=== PATIENT | female | born 1995 ===

== ENCOUNTER 2017-03-11 15:45 | Emergency (ER) | payer OTHER ==
[2017-03-11 16:08] VITALS: BP 108/57; PULSE 73; RESP 18; TEMP 98.5; O2SAT 98
--- NOTE | 2017-03-11 16:36 | ED PDOC ---
Lower Extremity Pain/Injury Time Seen by Provider: 03/11/17 15:56 Chief Complaint (Nursing): Lower Extremity Problem/Injury Chief Complaint (Provider): Right foot injury History Per: Patient History/Exam Limitations: no limitations Onset/Duration Of Symptoms: Mins (30 min prior to arrival) Current Symptoms Are (Timing): Still Present Additional Complaint(s): Gill is a 21 y/o female who presents to the ED complaining of right foot pain after sustaining an injury 30 minutes prior to arrival. States she rolled her ankle while walking downstairs. Denies taking any medications for pain relief. Denies numbness and tingling. LMP was beginning of February. PMD: Yovany Colbert Past Medical History Reviewed: Historical Data, Nursing Documentation, Vital Signs Vital Signs: Last Vital Signs Temp 98.5 F 03/11/17 16:04 Pulse 73 03/11/17 16:04 Resp 18 03/11/17 16:04 BP 108/57 L 03/11/17 16:04 Pulse Ox 98 03/11/17 16:04 - Medical History PMH: No Chronic Diseases - Surgical History Surgical History: No Surg Hx - Family History Family History: States: Unknown Family Hx - Social History Current smoker - smoking cessation education provided: No Alcohol: None Drugs: Denies - Home Medications Home Medications: Ambulatory Orders Medication Instructions Recorded Ibuprofen [Motrin Tab] 800 mg PO Q6H PRN #20 tab 03/11/17 - Allergies Allergies/Adverse Reactions: Allergies Allergy/AdvReac Type Severity Reaction Status Date / Time Penicillins Allergy SWELLING Verified 03/11/17 16:03 Review of Systems ROS Statement: Except As Marked, All Systems Reviewed And Found Negative Musculoskeletal: Positive for: Foot Pain (Right) Neurological: Negative for: Numbness, Other (Tingling) Physical Exam - Reviewed Nursing Documentation Reviewed: Yes Vital Signs Reviewed: Yes - Physical Exam Appears: Positive for: Well, Non-toxic, No Acute Distress Head Exam: Positive for: ATRAUMATIC, NORMAL INSPECTION, NORMOCEPHALIC Skin: Positive for: Normal Color, Warm, Dry Eye Exam: Positive for: EOMI, Normal appearance, PERRL Neck: Positive for: Normal Pulses-Dorsalis Pedis (L): 2+ Pulses-Dorsalis Pedis (R): 2+ Extremity: Positive for: Normal ROM, Tenderness (inferior to the lateral malleolus, and proximal 5th metatarsal.). Negative for: Deformity, Other ( Ecchymosis) Neurologic/Psych: Positive for: Alert, Oriented. Negative for: Motor/Sensory Deficits - ECG O2 Sat by Pulse Oximetry: 98 (RA) Pulse Ox Interpretation: Normal - Radiology X-Ray: Interpreted by Me, Viewed By Me X-Ray Interpretation: Fracture (Non-displaced fracture of the proximal 5th metatarsal) Medical Decision Making Medical Decision Making: Time: 16:32 Impression: Right foot injury Initial Plan: --Pending X-Ray Right Foot to r/o fracture --Given Motrin 600 mg PO --Pending reevaluation Time: 17:10 -- X-Ray shows a non-displaced fracture of the proximal 5th metatarsal --Patient will be seen by Podiatry Clinical Impression: Fracture, right 5th metatarsal Time: 17:25 --Podiatry consulted patient, and will place cast --Instructions for crutches provided --Will follow up in Podiatry Clinic next Tuesday Upon provider reevaluation patient is medically stable, and requires no further treatment in the ED at this time. There is agreement to discharge plan. Return if symptoms persist or worsen. Scribe Attestation: Documented by Maureen Dixon, acting as a scribe for Karrie Webster PA-C Provider Scribe Attestation: All medical record entries made by the Scribe were at my direction and personally dictated by me. I have reviewed the chart and agree that the record accurately reflects my personal performance of the history, physical exam, medical decision making, and the department course for this patient. I have also personally directed, reviewed, and agree with the discharge instructions and disposition. Disposition - Clinical Impression Clinical Impression: Metatarsal bone fracture - Disposition Referrals: Podiatry Clinic [Outside] Disposition: Routine/Home Disposition Time: 18:08 Condition: GOOD Prescriptions: Ibuprofen [Motrin Tab] 800 mg PO Q6H PRN #20 tab PRN Reason: Pain Instructions: Foot Fracture in Adults (ED)
--- NOTE | 2017-03-11 17:19 | RAD ---
PROCEDURE: Right foot dated 03/11/2017 HISTORY: Lateral pain. COMPARISON: None. FINDINGS: BONES: Current study reveals relatively nondisplaced fracture base 5th metatarsal right foot with of what appears represent some mild surrounding soft tissue swelling JOINTS: Normal. SOFT TISSUES: Normal. OTHER FINDINGS: None. IMPRESSION: Nondisplaced fracture base 5th metatarsal right foot with what appears represent some mild surrounding soft tissue swelling. Findings discussed with emergency room LEA Webster at approximately 5:18 p.m. with written down and read back verification.
--- NOTE | 2017-03-11 21:17 | CP.PCM.CON ---
History of Present Illness - History of Present Illness History of Present Illness: 21 year old female seen in ED complaining of right foot pain. Patient states that she missed the last step while walking down the stairs and heard a pain while simultaneously experiencing severe pain to the outside of her foot. Patient states that she applied ice to the area. She cannot weight bear at this time. Patient denies any further pedal complaints. Patient denies N/V/F/C/CP/SOB Review of Systems - Review of Systems Review of Systems: ROS unremarkable outside of HPI Past Patient History - Past Social History Alcohol: None Drugs: Denies - PSYCHIATRIC Hx Substance Use: No - SURGICAL HISTORY Hx Surgeries: No - ANESTHESIA Hx Anesthesia: No Meds Home Medications: Home Medication List Medication Instructions Recorded Confirmed Type Ibuprofen [Motrin Tab] 800 mg PO Q6H PRN #20 tab 03/11/17 Rx Allergies/Adverse Reactions: Allergies Allergy/AdvReac Type Severity Reaction Status Date / Time Penicillins Allergy SWELLING Verified 03/11/17 16:03 Physical Exam - Constitutional Appears: Well, Non-toxic - Extremities Exam Additional comments: LE focused exam: Vasc: DP/PT pulses palpable 2/4 b/l. Skin temperature warm to warm from proximal to distal. CFT< 3 seconds to all digits. Mild edema noted to base of right fifth metatarsal Neuro: Epicritic and protective sensation grossly intact b/l Derm: Mild ecchymosis noted at base of right fifth metatarsal. Otherwise no open lesions, wounds, maceration, xerosis, or abnormal growths noted at this time MSK: POP noted to level of base of right fifth metatarsal - Neurological Exam Neurological exam: Alert, Oriented x3 - Psychiatric Exam Psychiatric exam: Normal Affect, Normal Mood Results - Vital Signs Recent Vital Signs: Last Vital Signs Temp 98.5 F 03/11/17 16:04 Pulse 73 03/11/17 16:04 Resp 18 03/11/17 16:04 BP 108/57 L 03/11/17 16:04 Pulse Ox 98 03/11/17 18:08 Assessment & Plan - Assessment and Plan (Free Text) Assessment: 21 year old female seen in ED for right fifth met base metatarsal fx, nondisplaced Plan: Patient seen and evaluated in ED CHarts, labs and vitals reviewed Plan discussed with Dr. Mccall Xray reveals nondisplaced right fifth metatarsal base fx Cast applied to right leg and crutches dispensed Patient to keep leg elevated and take ibuprofen as needed Patient to f/u in podiatry clinic next week - Date & Time Date: 03/11/17 Time: 19:24
== END 2017-03-11 18:15 | disposition home or self-care (01) ==
LOC: H.ER 15:45
DX: S92.354A Nondisplaced fracture of fifth metatarsal bone, right foot, initial encounter for closed fracture (principal); X50.1XXA Overexertion from prolonged static or awkward postures, initial encounter; Y92.9 Unspecified place or not applicable

== ENCOUNTER 2017-05-26 15:27 | Observation (INO) | payer SELFPAY ==
--- NOTE | 2017-05-26 15:58 | ED PDOC ---
HPI: Chest Pain Time Seen by Provider: 05/26/17 15:41 Chief Complaint (Nursing): Chest Pain Chief Complaint (Provider): Chest Pain History Per: Patient History/Exam Limitations: no limitations Onset/Duration Of Symptoms: Days (x5) Current Symptoms Are (Timing): Still Present Pain Scale Rating Of: 5 Associated Symptoms: Dyspnea Exacerbating Factors: Deep Breathing Additional Complaint(s): Gill Kirkpatrick is a 21 year old female, with no past medical history, who presents to the emergency department complaining of central chest pain associated with difficulty breathing onset for 5 days. She states the pain worsens with deep breaths. Patient has a history of right foot fracture in February for which cast was removed last week. She is currently walking in crutches. She denies any history of blood clots, but does complain of mild pain in right lower extremity, denies swelling. Last period was 1 month ago and states she is due now. She denies any dizziness, fever, cough, or hemoptysis. No further medical complaints. PMD: None provided. Past Medical History Reviewed: Historical Data, Nursing Documentation, Vital Signs Vital Signs: Last Vital Signs Temp 98.0 F 05/26/17 18:01 Pulse 63 05/26/17 18:30 Resp 18 05/26/17 18:01 BP 100/52 L 05/26/17 18:01 Pulse Ox 99 05/26/17 18:30 - Family History Family History: States: Unknown Family Hx - Home Medications Home Medications: Ambulatory Orders Medication Instructions Recorded Ibuprofen [Motrin Tab] 800 mg PO Q6H PRN #20 tab 03/11/17 - Allergies Allergies/Adverse Reactions: Allergies Allergy/AdvReac Type Severity Reaction Status Date / Time Penicillins Allergy SWELLING Verified 05/26/17 15:32 Review of Systems ROS Statement: Except As Marked, All Systems Reviewed And Found Negative Constitutional: Negative for: Fever Cardiovascular: Positive for: Chest Pain Respiratory: Positive for: Shortness of Breath. Negative for: Cough, Hemoptysis Neurological: Negative for: Dizziness Physical Exam - Reviewed Nursing Documentation Reviewed: Yes Vital Signs Reviewed: Yes - Physical Exam Appears: Positive for: Non-toxic Head Exam: Positive for: ATRAUMATIC, NORMAL INSPECTION, NORMOCEPHALIC Skin: Positive for: Normal Color, Warm, Dry Eye Exam: Positive for: EOMI, Normal appearance, PERRL Neck: Positive for: Normal, Painless ROM, Supple Cardiovascular/Chest: Positive for: Regular Rate, Rhythm. Negative for: Murmur Respiratory: Positive for: Normal Breath Sounds. Negative for: Respiratory Distress Gastrointestinal/Abdominal: Positive for: Normal Exam, Bowel Sounds, Soft. Negative for: Tenderness, Guarding, Rebound Back: Positive for: Normal Inspection. Negative for: L CVA Tenderness, R CVA Tenderness Extremity: Positive for: Other (Right foot on walking cast. Negative Homans' sign). Negative for: Swelling (right lower extremity) Neurologic/Psych: Positive for: Alert, Oriented. Negative for: Motor/Sensory Deficits - Laboratory Results Result Diagrams: 05/26/17 16:10 05/26/17 16:10 - ECG ECG Rhythm: Positive for: Sinus Rhythm (Short [place]) Rate: 63 O2 Sat by Pulse Oximetry: 99 (RA) Pulse Ox Interpretation: Normal Medical Decision Making Medical Decision Making: Initial impression: Atypical chest pain w/ history of recent right lower extremity immobilization. Rule out: DVT/PE Initial Plan: --Angio chest PE protocol [CT] --EKG --B-type natriuretic peptide --Comp Metabolic Panel --Troponin I --Urine dipstick --Urine --CBC w/ differential --PTT --PT --Chest two views (PA/LAT) [RAD] --reevaluation CT Chest FINDINGS: PULMONARY ARTERIES: Unremarkable. No pulmonary embolism. AORTA: No acute findings. No thoracic aortic aneurysm. LUNGS: Unremarkable. No nodule, mass or pulmonary consolidation. PLEURAL SPACES: Unremarkable. No effusion or pneuomothorax. HEART: Unremarkable. No cardiomegaly. No significant pericardial effusion. LYMPH NODES: No lymphadenopathy. BONES, CHEST WALL: Unremarkable. No fracture or destructive lesion OTHER FINDINGS: Unremarkable. IMPRESSION: Unremarkable CT pulmonary angiogram. No pulmonary embolus. No infiltrate pleural or pericardial effusion or pneumothorax. Normal cardiac size. Labs reviewed, trop neg, BNP normal, preg neg. Utox pending. 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 D/w Dr Bashir, rec admission for arrhythmia monitoring, echo in am. Admit hospitalist. Scribe Attestation: Documented by Feliberto Willard, acting as a scribe for Guy Miramontes MD Provider Scribe Attestation: All medical record entries made by the Scribe were at my direction and personally dictated by me. I have reviewed the chart and agree that the record accurately reflects my personal performance of the history, physical exam, medical decision making, and the department course for this patient. I have also personally directed, reviewed, and agree with the discharge instructions and disposition. 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
[2017-05-26 16:23] LABS: BASO # 0.1 K/uL (0.0-0.2); BASO % 1.4 % (0.0-2.0); EOS # 0.1 K/uL (0.0-0.7); EOS % 0.9 % (0.0-4.0); HEMATOCRIT 38.8 % (34.0-47.0); LYMPH # 2.9 K/uL (1.0-4.3); LYMPH % 35.6 % (20.0-40.0); MEAN CELL VOLUME 86.7 fl (81.0-99.0); MEAN CORPUSCULAR HEMOGLOBIN 28.5 pg (27.0-31.0); MEAN CORPUSCULAR HGB CONC 32.9 g/dL (33.0-37.0); MEAN PLATELET VOLUME 7.2 fl (7.2-11.7); MONO # 0.7 K/uL (0.0-0.8); MONO % 8.1 % (0.0-10.0); NEUT # 4.4 K/uL (1.8-7.0); RED CELL DISTRIBUTION WIDTH 13.9 % (11.5-14.5); WHITE BLOOD COUNT 8.1 K/uL (4.8-10.8)
[2017-05-26 16:32] LABS: ALB/GLOB RATIO 1.4 (1.0-2.1); ALKALINE PHOSPHATASE 65 U/L (38-126); ALT/SGPT 34 U/L (9-52); AST/SGOT 27 U/L (14-36); BILIRUBIN,TOTAL 1.5 mg/dl (0.2-1.3); BLOOD UREA NITROGEN 9 mg/dl (7-17); CALCIUM 9.5 mg/dL (8.4-10.2); CARBON DIOXIDE 24 mmol/L (22-30); CHLORIDE 105 mmol/L (98-107); GFR AFRICAN-AMERICAN > 60; GLUCOSE,RANDOM 85 mg/dL (65-105); POTASSIUM 3.9 MMOL/L (3.6-5.0); SODIUM 142 mmol/l (132-148)
[2017-05-26] MEDS ORDERED: Sodium Chloride 0.9% 50 ML IV ONE (16:55)
[2017-05-26] MEDS ORDERED: Iodixanol 320 MG/ML 100 ML BOTTLE IV ONE (16:55)
[2017-05-26 17:19] LABS: PARTIAL THROMBOPLASTIN TIME 37.2 Seconds (25.6-37.1)
--- NOTE | 2017-05-26 17:50 | CT ---
PROCEDURE: CT Chest with contrast (Pulmonary Angiogram) HISTORY: chest pain, recent RLE immbolized cast COMPARISON: None available. TECHNIQUE: Axial computed tomography images were obtained of the chest in the pulmonary arterial phase of enhancement. Coronal and sagittal reformatted images were created and reviewed. Intravenous contrast dose: Visipaque 320, 80 cc. Radiation dose: Total exam DLP = 341.50 mGy-cm. This CT exam was performed using one or more of the following dose reduction techniques: Automated exposure control, adjustment of the mA and/or kV according to patient size, and/or use of iterative reconstruction technique. FINDINGS: PULMONARY ARTERIES: Unremarkable. No pulmonary embolism. AORTA: No acute findings. No thoracic aortic aneurysm. LUNGS: Unremarkable. No nodule, mass or pulmonary consolidation. PLEURAL SPACES: Unremarkable. No effusion or pneuomothorax. HEART: Unremarkable. No cardiomegaly. No significant pericardial effusion. LYMPH NODES: No lymphadenopathy. BONES, CHEST WALL: Unremarkable. No fracture or destructive lesion OTHER FINDINGS: Unremarkable. IMPRESSION: Unremarkable CT pulmonary angiogram. No pulmonary embolus. No infiltrate pleural or pericardial effusion or pneumothorax. Normal cardiac size.
--- NOTE | 2017-05-26 18:55 | US ---
HISTORY: lower chest pain r/o cholelithiasis COMPARISON: No acute findings TECHNIQUE: Sonographic evaluation of the right upper quadrant of the abdomen. FINDINGS: LIVER: Measures 11.3 cm in length. Echogenic liver may be seen in setting of hepatic parenchymal disease or fatty infiltration. No focal hepatic mass identified. The main portal vein appears patent with normal directional flow. No intrahepatic bile duct dilatation. GALLBLADDER: No gallstones. No gallbladder wall thickening or pericholecystic edema. Negative sonographic Dorman's sign as assessed by the neon molder. COMMON BILE DUCT: Measures 3 mm. PANCREAS: Not well-visualized. RIGHT KIDNEY: Measures 8.7 x 4.7 x 3.3 cm. No obstructing calculus or hydronephrosis identified. AORTA: Not well-visualized. IVC: Not well-visualized. OTHER FINDINGS: None . IMPRESSION: Echogenic liver may be seen in setting of hepatic parenchymal disease or fatty infiltration.
--- NOTE | 2017-05-26 20:17 | CP.PCM.HP ---
History of Present Illness - History of Present Illness History of Present Illness: CC: CP HPI: This is a 21 y/o female with no chronic medical conditions who comes in for CP/SOB. She states symptoms started on Tuesday; CP was in middle of the chest and did not radiate; it was accompanied by SOB/difficulty breathing, though mild. It resolved overnight, but then returned intermittently over next few days. There was no BYRD, no palpitations or diaphoresis. Nothing particularly made symptoms better, sometimes twisting to side or bending over made it worse. Patient deneis having these symptoms before. Denies f/c/n/v/d. ROS: 14 systems reviewed, negative other than HPI MHx/SHx: foot fx a few months ago, was casted, now removed Allergies: PCN Medications: None Family Hx: perhaps one GF with ?cardiomyopathy Social Hx: Lives with family, no tobacco, EtOH or other substances Present on Admission - Present on Admission Any Indicators Present on Admission: No Past Patient History - Past Social History Smoking Status: Never Smoked - MUSCULOSKELETAL/RHEUMATOLOGICAL Other/Comment: Right foot FX - PSYCHIATRIC Hx Substance Use: No - SURGICAL HISTORY Hx Surgeries: No - ANESTHESIA Hx Anesthesia: No Meds Allergies/Adverse Reactions: Allergies Allergy/AdvReac Type Severity Reaction Status Date / Time Penicillins Allergy SWELLING Verified 05/26/17 15:32 Physical Exam - Constitutional Appears: No Acute Distress - Head Exam Head Exam: ATRAUMATIC, NORMOCEPHALIC - Eye Exam Eye Exam: EOMI, PERRL - ENT Exam ENT Exam: Mucous Membranes Moist - Neck Exam Neck exam: Positive for: Full Rom - Respiratory Exam Respiratory Exam: Clear to Auscultation Bilateral, NORMAL BREATHING PATTERN - Cardiovascular Exam Cardiovascular Exam: REGULAR RHYTHM, +S1, +S2 - GI/Abdominal Exam GI & Abdominal Exam: Normal Bowel Sounds, Soft - Extremities Exam Extremities exam: Positive for: full ROM, normal inspection - Neurological Exam Neurological exam: Alert, CN II-XII Intact, Oriented x3 - Psychiatric Exam Psychiatric exam: Normal Affect, Normal Mood - Skin Skin Exam: Dry, Warm Results - Vital Signs Recent Vital Signs: Last Vital Signs Temp 98.0 F 05/26/17 18:01 Pulse 63 05/26/17 19:27 Resp 18 05/26/17 18:01 BP 100/52 L 05/26/17 18:01 Pulse Ox 99 05/26/17 19:27 - Labs Result Diagrams: 05/26/17 16:10 05/26/17 16:10 Labs: Laboratory Results - last 24 hr 05/26/17 05/26/17 05/26/17 16:10 16:10 16:10 WBC 8.1 RBC 4.47 Hgb 12.7 Hct 38.8 MCV 86.7 MCH 28.5 MCHC 32.9 L RDW 13.9 Plt Count 295 MPV 7.2 Neut % (Auto) 54.0 Lymph % (Auto) 35.6 [place] % (Auto) 8.1 Eos % (Auto) 0.9 Baso % (Auto) 1.4 Neut # 4.4 Lymph # 2.9 [place] # 0.7 Eos # 0.1 Baso # 0.1 PT 13.1 INR 1.2 APTT 37.2 H Sodium 142 Potassium 3.9 Chloride 105 Carbon Dioxide 24 Anion Gap 17 BUN 9 Creatinine 0.5 L Est GFR ( Amer) > 60 Est GFR (Non-Af Amer) > 60 Random Glucose 85 Calcium 9.5 Total Bilirubin 1.5 H AST 27 ALT 34 Alkaline Phosphatase 65 Troponin I < 0.0120 NT-Pro-B Natriuret Pep 35.6 Total Protein 8.0 Albumin 4.7 Globulin 3.4 Albumin/Globulin Ratio 1.4 Urine Opiates Screen Urine Methadone Screen Ur Barbiturates Screen Ur Phencyclidine Scrn Ur Amphetamines Screen U Benzodiazepines Scrn U Oth Cocaine Metabols U Cannabinoids Screen 05/26/17 19:00 WBC RBC Hgb Hct MCV MCH MCHC RDW Plt Count MPV Neut % (Auto) Lymph % (Auto) [place] % (Auto) Eos % (Auto) Baso % (Auto) Neut # Lymph # [place] # Eos # Baso # PT INR APTT Sodium Potassium Chloride Carbon Dioxide Anion Gap BUN Creatinine Est GFR ( Amer) Est GFR (Non-Af Amer) Random Glucose Calcium Total Bilirubin AST ALT Alkaline Phosphatase Troponin I NT-Pro-B Natriuret Pep Total Protein Albumin Globulin Albumin/Globulin Ratio Urine Opiates Screen Negative Urine Methadone Screen Negative Ur Barbiturates Screen Negative Ur Phencyclidine Scrn Negative Ur Amphetamines Screen Negative U Benzodiazepines Scrn Negative U Oth Cocaine Metabols Negative U Cannabinoids Screen Negative - Imaging and Cardiology US - abdomen Status: Report reviewed by me (echogenic liver; ?fatty infiltration/parenchymal disease) CT scan - chest Status: Report reviewed by me (no acute finding) Assessment & Plan (1) Chest pain Assessment and Plan: 21 y/o female p/w chest pain, 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
[2017-05-27 07:16] LABS: BLOOD UREA NITROGEN 14 mg/dl (7-17); CALCIUM 9.2 mg/dL (8.4-10.2); CARBON DIOXIDE 26 mmol/L (22-30); CHLORIDE 105 mmol/L (98-107); GFR AFRICAN-AMERICAN > 60; GLUCOSE,RANDOM 83 mg/dL (65-105); POTASSIUM 3.8 MMOL/L (3.6-5.0); SODIUM 142 mmol/l (132-148)
[2017-05-27 07:44] LABS: THYROID STIMULATING HORMONE 3.49 mIU/ML (0.46-4.68)
[2017-05-27 08:16] VITALS: RESP 20
[2017-05-27] MEDS ORDERED: Enoxaparin 40 mg Syringe SC SCH (09:00)
[2017-05-27 13:28] VITALS: O2SAT 98
--- NOTE | 2017-05-27 13:44 | CP.PCM.PN ---
Subjective - Date & Time of Evaluation Date of Evaluation: 05/27/17 Time of Evaluation: 13:44 - Subjective Subjective: Progress Note for Family Medicine- Dr. Iván Blackwell 21 y.o female seen at bedside for chest pain with cousin and mother. Patient is seen resting comfortably at bedside, NAD, in AAOx3. She reports that she is feeling much better today. She reports her chest pain has decreased, rating the pain 4/10 and describes the constant pain as being in localized center of her chest. Reports aspirin given to her in the ED helped. Reports the pain is worse with deep breaths. She denies nausea, fever, shortness of breath, chills, palpitations. She reports having no problems with voiding. Her last BW was yesterday. She denies any dizziness with gait. No problems with gait. Denies calf pain or tenderness. Objective - Vital Signs/Intake and Output Vital Signs (last 24 hours): Temp Pulse Resp BP Pulse Ox 98.3 F 59 L 20 97/59 L 98 05/27/17 13:28 05/27/17 13:28 05/27/17 13:28 05/27/17 13:28 05/27/17 13:28 - Medications Medications: Current Medications Acetaminophen (Tylenol 325mg Tab) 650 mg PO Q6 PRN PRN Reason: Pain, Mild (1-3) Last Admin: 05/27/17 08:34 Dose: 650 mg Enoxaparin Sodium (Lovenox) 40 mg SC DAILY BELKIS PRN Reason: Protocol Last Admin: 05/27/17 08:30 Dose: 40 mg Ondansetron HCl (Zofran Inj) 4 mg IVP Q6 PRN PRN Reason: Nausea/Vomiting - Labs Labs: 05/26/17 16:10 05/27/17 04:20 PT 13.1 Seconds (9.8-13.1) 05/26/17 16:10 INR 1.2 (0.9-1.2) 05/26/17 16:10 APTT 37.2 Seconds (25.6-37.1) H 05/26/17 16:10 - Constitutional Appears: Well, Non-toxic, No Acute Distress - Head Exam Head Exam: ATRAUMATIC, NORMAL INSPECTION - Eye Exam Eye Exam: Normal appearance - ENT Exam ENT Exam: Mucous Membranes Moist - Neck Exam Neck Exam: Full ROM - Respiratory Exam Respiratory Exam: Chest Wall Tenderness, NORMAL BREATHING PATTERN. absent: Accessory Muscle Use, Decreased Breath Sounds, Rales, Rhonchi, Wheezes, Respiratory Distress, Stridor - Cardiovascular Exam Cardiovascular Exam: REGULAR RHYTHM, RRR, +S1, +S2 - GI/Abdominal Exam GI & Abdominal Exam: Soft, Normal Bowel Sounds. absent: Tenderness - Extremities Exam Extremities Exam: Full ROM, Normal Capillary Refill, Normal Inspection. absent : Calf Tenderness, Joint Swelling, Pedal Edema, Tenderness - Neurological Exam Neurological Exam: Alert, Awake, Oriented x3 - Psychiatric Exam Psychiatric exam: Normal Affect, Normal Mood - Skin Skin Exam: Dry, Intact, Normal Color, Warm Assessment and Plan - Assessment and Plan (Free Text) Assessment: 21 y/o female with atypical chest pain and Raj Parkinson White pattern seen on EKG, admitted to r/o ACS Plan: 1) Atypical hest pain -CT results- Unremarkable CT pulmonary angiogram. No PE. No infiltrate pleural or pericardial effusion or pneumothorax. Normal cardiac size. -Negative PE -Troponin x2 negative -NT-Pro-B Natriuret Pep 35.6 WNL -ECHO- pending read -EKG (05/26/17)- pending official read -EKG (05/27/17)- pending official read 2) Raj Parkinson White -Cardiology consulted, recommendations appreciated -Patient may possibility be d/c today pending cardiology recommendations; awaiting recommendations. thank you 3) Liver function abnormality -Bilirubin 1.5, elevated (05/26/17) -Echogenic liver may be seen in setting of hepatic parenchymal disease or fatty infiltration 4) DVT prophylaxis -Lovenox 40mg SC Daily
--- NOTE | 2017-05-27 15:45 | CARD ---
APPROVED REPORT EXAM: Two-dimensional and M-mode echocardiogram with Doppler and color Doppler. Other Information Quality : GoodRhythm : NSR INDICATION Abnormal EKG/Arrhythmia 2D DIMENSIONS IVSd0.56 (0.7-1.1cm)LVDd4.56 (3.9-5.9cm) LVOT Diameter2.09 (1.8-2.4cm)PWd0.73 (0.7-1.1cm) IVSs1.04 (0.8-1.2cm)LVDs3.16 (2.5-4.0cm) FS (%) 30.7 %PWs0.78 (0.8-1.2cm) M-Mode DIMENSIONS Left Atrium (MM)3.37 (2.5-4.0cm)IVSd0.90 (0.7-1.1cm) Aortic Root2.88 (2.2-3.7cm)LVDd4.27 (4.0-5.6cm) Aortic Cusp Exc.2.16 (1.5-2.0cm)PWd0.88 (0.7-1.1cm) IVSs0.93 cmFS (%) 31 % LVDs2.93 (2.0-3.8cm)PWs0.98 cm Mitral Valve E/A ratio0.0 TDI E/Lateral E'0.0E/Medial E'0.0 Pulmonary Valve PV Peak [id number]/s LEFT VENTRICLE The left ventricle is normal size. There is normal left ventricular wall thickness. The left ventricular function is normal. The left ventricular ejection fraction is within the normal range. There is normal LV segmental wall motion. The left ventricular diastolic function is normal. RIGHT VENTRICLE The right ventricle is normal size. There is normal right ventricular wall thickness. The right ventricular systolic function is normal. ATRIA The left atrium size is normal. The right atrium size is normal. AORTIC VALVE The aortic valve is not well visualized. No aortic regurgitation is present. There is no aortic valvular stenosis. MITRAL VALVE The mitral valve is normal in structure. There is no mitral valve stenosis. There is no mitral valve regurgitation noted. TRICUSPID VALVE The tricuspid valve is normal in structure. There is no tricuspid valve regurgitation noted. PULMONIC VALVE The pulmonary valve is normal in structure. There is no pulmonic valvular regurgitation. GREAT VESSELS The aortic root is normal in size. The IVC was not visualized. PERICARDIAL EFFUSION The pericardium appears normal. <Conclusion> The left ventricle is normal size. There is normal left ventricular wall thickness. The left ventricular function is normal. The left ventricular ejection fraction is within the normal range. There is normal LV segmental wall motion. The left ventricular diastolic function is normal.
[2017-05-27 15:57] VITALS: BP 93/59; PULSE 63; TEMP 98.5
--- NOTE | 2017-05-27 18:37 | CP.PCM.DIS ---
Provider - Provider Date of Admission: 05/26/17 19:30 Attending physician: Rylie Pardo MD Consults: Cardiology- Dr. 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 Status: Acute (4) Metatarsal bone fracture Status: Chronic Hospital Course - Lab Results Lab Results: Most Recent Lab Values WBC 8.1 K/uL (4.8-10.8) 05/26/17 16:10 RBC 4.47 Mil/uL (3.80-5.20) 05/26/17 16:10 Hgb 12.7 g/dL (12.0-16.0) 05/26/17 16:10 Hct 38.8 % (34.0-47.0) 05/26/17 16:10 MCV 86.7 fl (81.0-99.0) 05/26/17 16:10 MCH 28.5 pg (27.0-31.0) 05/26/17 16:10 MCHC 32.9 g/dL (33.0-37.0) L 05/26/17 16:10 RDW 13.9 % (11.5-14.5) 05/26/17 16:10 Plt Count 295 K/uL (130-400) 05/26/17 16:10 MPV 7.2 fl (7.2-11.7) 05/26/17 16:10 Neut % (Auto) 54.0 % (50.0-75.0) 05/26/17 16:10 Lymph % (Auto) 35.6 % (20.0-40.0) 05/26/17 16:10 [place] % (Auto) 8.1 % (0.0-10.0) 05/26/17 16:10 Eos % (Auto) 0.9 % (0.0-4.0) 05/26/17 16:10 Baso % (Auto) 1.4 % (0.0-2.0) 05/26/17 16:10 Neut # 4.4 K/uL (1.8-7.0) 05/26/17 16:10 Lymph # 2.9 K/uL (1.0-4.3) 05/26/17 16:10 [place] # 0.7 K/uL (0.0-0.8) 05/26/17 16:10 Eos # 0.1 K/uL (0.0-0.7) 05/26/17 16:10 Baso # 0.1 K/uL (0.0-0.2) 05/26/17 16:10 PT 13.1 Seconds (9.8-13.1) 05/26/17 16:10 INR 1.2 (0.9-1.2) 05/26/17 16:10 APTT 37.2 Seconds (25.6-37.1) H 05/26/17 16:10 Sodium 142 mmol/l (132-148) 05/27/17 04:20 Potassium 3.8 MMOL/L (3.6-5.0) 05/27/17 04:20 Chloride 105 mmol/L (98-107) 05/27/17 04:20 Carbon Dioxide 26 mmol/L (22-30) 05/27/17 04:20 Anion Gap 16 (10-20) 05/27/17 04:20 BUN 14 mg/dl (7-17) 05/27/17 04:20 Creatinine 0.6 mg/dL (0.7-1.2) L 05/27/17 04:20 Est GFR ( Amer) > 60 05/27/17 04:20 Est GFR (Non-Af Amer) > 60 05/27/17 04:20 Random Glucose 83 mg/dL (65-105) 05/27/17 04:20 Calcium 9.2 mg/dL (8.4-10.2) 05/27/17 04:20 Total Bilirubin 1.5 mg/dl (0.2-1.3) H 05/26/17 16:10 AST 27 U/L (14-36) 05/26/17 16:10 ALT 34 U/L (9-52) 05/26/17 16:10 Alkaline Phosphatase 65 U/L (38-126) 05/26/17 16:10 Troponin I < 0.0120 ng/mL (0.00-0.120) 05/27/17 04:20 NT-Pro-B Natriuret Pep 35.6 pg/ml (0-450) 05/26/17 16:10 Total Protein 8.0 G/DL (6.3-8.2) 05/26/17 16:10 Albumin 4.7 g/dL (3.5-5.0) 05/26/17 16:10 Globulin 3.4 gm/dL (2.2-3.9) 05/26/17 16:10 Albumin/Globulin Ratio 1.4 (1.0-2.1) 05/26/17 16:10 Free T4 0.91 ng/dL (0.78-2.19) 05/27/17 04:20 TSH 3rd Generation 3.49 mIU/ML (0.46-4.68) 05/27/17 04:20 Urine Opiates Screen Negative (NEGATIVE) 05/26/17 19:00 Urine Methadone Screen Negative (NEGATIVE) 05/26/17 19:00 Ur Barbiturates Screen Negative (NEGATIVE) 05/26/17 19:00 Ur Phencyclidine Scrn Negative (NEGATIVE) 05/26/17 19:00 Ur Amphetamines Screen Negative (NEGATIVE) 05/26/17 19:00 U Benzodiazepines Scrn Negative (NEGATIVE) 05/26/17 19:00 U Oth Cocaine Metabols Negative (NEGATIVE) 05/26/17 19:00 U Cannabinoids Screen Negative (NEGATIVE) 05/26/17 19:00 - Hospital Course Hospital Course: 21 y.o female presents to the ED for chest pain, admitted to rule out ACS. Troponin x2 negative. EKG shows Raj Parkinson White pattern. CT unremarkable. ECHO unremarkable. During admission, patient's pain was reproducible upon palpation of the sternum. Her symptoms improved and cardiology, Dr. Denton, was consulted who states patient is cleared for discharge home to follow up with cardiology clinic as outpatient. Notably, isolated elevated bilirubin was detected which should be explored as outpatient. Discharge Exam - Head Exam Head Exam: ATRAUMATIC, NORMAL INSPECTION - Eye Exam Eye Exam: Normal appearance - Respiratory Exam Respiratory Exam: NORMAL BREATHING PATTERN, UNREMARKABLE. absent: Decreased Breath Sounds, Rales, Rhonchi, Wheezes, Respiratory Distress, Stridor - Cardiovascular Exam Cardiovascular Exam: REGULAR RHYTHM, RRR, +S1, +S2 Additional comments: reproducible pain Localized pain elicited with palpation of the lower central sternum, much improved compared to yesterday - GI/Abdominal Exam GI & Abdominal Exam: Normal Bowel Sounds, Unremarkable - Extremities Exam Extremities exam: normal capillary refill, normal inspection, pedal pulses present Additional comments: DP and PT 2/4 bilaterally, temperature gradient WNL, CFT <3 seconds, no swelling noted to LE bilaterally, no erythema no pain or tenderness elicited with palpation to calf bilaterally no pain with palpation to the 5th metatarsal base at the location of the healing fracture - Neurological Exam Neurological exam: Alert, Oriented x3 - Psychiatric Exam Psychiatric exam: Normal Affect, Normal Mood - Skin Skin Exam: Dry, Intact, Normal Color, Warm Discharge Plan - Follow Up Plan Condition: GOOD Disposition: HOME/ ROUTINE Instructions: Xfnsx-Dphcjkadp-Kapcc Syndrome (DC) Additional Instructions: F/U with PCP Dr. Poole @ 9:40am on 06/17/17 -Will f/u PCP with liver abnormalities F/U with [employer] Operator Helper Dr. Cat @11:15am on 05/30/17 Will call to f/u with Director Of Regional [employer] Medications reconciled. Instructed patient to seek help immediately and go to ED if symptoms and condition appears as educated.
--- NOTE | 2017-05-27 20:55 | CON ---
CARDIOLOGY CONSULTATION DATE: REASON FOR CONSULTATION: Abnormal EKG. HISTORY OF PRESENT ILLNESS: The patient is a 21 years old female who was born in [place], came here to [facility] at the age 1-1/2 years old. She has no prior cardiac history. She sustained a fall from slippage on the stair in 02/2017 and had stress fracture of her right leg. Patient had a cast that was removed weeks ago. Patient presents because of sharp chest pain upon deep breathing. EKG was consistent with pre-excitation and accelerated conduction. The patient denies any prior cardiac history, denies any palpitation, dizziness, or syncope. Patient does not recall an EKG was done for her prior to yesterday. SOCIAL HISTORY: Nonsmoker. MEDICATIONS: Patient is on no medications at home. She is currently on Lovenox 40 mg subcutaneously daily, Tylenol 650 mg q. 6 hours p.r.n., Zofran 4 mg intravenously q. 6 hours. PHYSICAL EXAMINATION: GENERAL: Patient is a teenager who does not appear to be in acute distress. VITAL SIGNS: Blood pressure 97/59, heart rate 59, temperature 98.3, respirations 20. HEENT: Normocephalic. NECK: No JVD. CHEST: Clear. HEART: S1, S2 regular. ABDOMEN: Soft. EXTREMITIES: No edema. LABORATORY DATA: Hemoglobin, hematocrit, white count and platelet count are within normal limits. PT/INR are within normal limit, PTT is 37.2. SMA-7 is within normal limit except for creatinine of 0.6. Two sets of troponins are negative. TSH level is within normal limit. Urine drug screen is within normal limit. EKG revealed sinus rhythm, accelerated conduction with pre-excitation. Chest CT angio was unremarkable. No pulmonary embolus. Abdominal ultrasound, echogenic liver. ASSESSMENT: 1. Atypical chest discomfort, myocardial infarction is ruled out. 2. Preexcitation and accelerated conduction; however, the patient does not have the clinical criteria for Txfwo-Wrltmjjup-Bdkeo syndrome. RECOMMENDATIONS: Continue current observation. I will review the echocardiographic study and if unremarkable, no further cardiac workup is needed; however, the patient was informed about the EKG findings and was to report in the future if she experienced palpitation or dizziness or syncopal episode. Satya Denton MD
--- NOTE | 2017-05-27 22:39 | CARD ---
APPROVED REPORT EKG Measurement Heart [id number] <Conclusion> Normal sinus rhythm with sinus arrhythmia [id number] Abnormal ECG
--- NOTE | 2017-05-27 22:47 | CARD ---
APPROVED REPORT EKG Measurement Heart [id number] <Conclusion> Normal sinus rhythm [id number]-Scvin Abnormal ECG
== END 2017-05-27 19:30 | disposition home or self-care (01) ==
LOC: H.ER 15:27 → H.ERHOLD 19:30 → H.TEL 21:48
PROVIDERS: ADMIT Family Medicine Geriatric Medicine; ATTEND Family Medicine Geriatric Medicine
DX: R07.89 Other chest pain (principal); I45.6 Pre-excitation syndrome; R94.5 Abnormal results of liver function studies
CPT/HCPCS: 36415; 71275; 76705; 80048; 80053; 80324; 80345; 80346; 80349; 80353; 80358; 80361; 81025; 83880; 83992; 84439; 84443; 84484; 85025; 85610; 85730; 93005; 93306; 99284; G0378; J1650; Q9967

== ENCOUNTER 2017-09-10 08:32 | Emergency (ER) | payer SELFPAY ==
[2017-09-10 08:49] VITALS: BP 108/71; PULSE 76; RESP 16; TEMP 97; O2SAT 97
--- NOTE | 2017-09-10 09:54 | ED PDOC ---
Lower Extremity Pain/Injury Time Seen by Provider: 09/10/17 08:42 Chief Complaint (Nursing): Abnormal Skin Integrity History Per: Patient History/Exam Limitations: no limitations Onset/Duration Of Symptoms: Days (1 week ago) Current Symptoms Are (Timing): Still Present Additional Complaint(s): Gill Restrepo is a 21 year old female, whose past medical history includes right foot fracture and surgery 2 months ago, who presents to the emergency department complaining of right foot erythema and itching since one week. Patient reports one week ago she did her regular foot baths in hot water with three natural herbs. Ever since then she has developed diffused redness and itching. Patient notes taking Benadryl but no improvement was made. She also is treating her right foot with oatmeal and lotions to suppress the itching. Patient denies trauma, fever, nausea, vomiting, or other complaints. - Ankle/Foot Description Of Injury: Other - Risk Factors DVT Risk Factors: Pos: None Past Medical History Reviewed: Historical Data, Nursing Documentation, Vital Signs Vital Signs: Last Vital Signs Temp 97.0 F L 09/10/17 08:43 Pulse 76 09/10/17 08:43 Resp 16 09/10/17 08:43 BP 108/71 09/10/17 08:43 Pulse Ox 97 09/10/17 08:43 - Medical History PMH: Fractures (RIGHT FOOT) Denies: Chronic Kidney Disease - Surgical History Other surgeries: foot surgery - Family History Family History: States: Unknown Family Hx - Home Medications Home Medications: Ambulatory Orders Medication Instructions Recorded Doxycycline/Skin Cleanser #19 50 mg PO DAILY 09/10/17 [Morgidox 1X50 mg Kit] Hydrocortisone 1% Cream [Cortizone 1 appl TP DAILY #1 tube 09/10/17 1% Cream] Hydroxyzine Pamoate [Vistaril] 25 mg PO TID PRN #30 cap 09/10/17 Prednisone [Deltasone] 60 mg PO DAILY 5 Days tablet 09/10/17 - Allergies Allergies/Adverse Reactions: Allergies Allergy/AdvReac Type Severity Reaction Status Date / Time Penicillins Allergy SWELLING Verified 09/10/17 08:42 Review of Systems ROS Statement: Except As Marked, All Systems Reviewed And Found Negative Constitutional: Negative for: Fever Gastrointestinal: Negative for: Vomiting Musculoskeletal: Positive for: Foot Pain (right foot erythema and itchiness) Physical Exam - Reviewed Nursing Documentation Reviewed: Yes Vital Signs Reviewed: Yes - Physical Exam Appears: Positive for: Well, Non-toxic, No Acute Distress Head Exam: Positive for: ATRAUMATIC, NORMAL INSPECTION, NORMOCEPHALIC Skin: Positive for: Warm. Negative for: Normal Color (right foot has slightly small elevated blisters in between toes with no d/c or open wounds) Eye Exam: Positive for: Normal appearance, EOMI Cardiovascular/Chest: Positive for: Regular Rate, Rhythm Respiratory: Negative for: Respiratory Distress Extremity: Positive for: Normal ROM, Other (right foot diffused erythema and clearly demarcated border below ankle). Negative for: Tenderness, Swelling Neurologic/Psych: Positive for: Alert, Oriented - ECG O2 Sat by Pulse Oximetry: 97 (room air) Pulse Ox Interpretation: Normal Medical Decision Making Medical Decision Making: Impression: 21 y/o female with right foot erythema and has slightly small elevated blisters in between toes with no d/c or open wounds. Differential Diagnosis included but are not limited to: contact dermatitis from natural herbs and less likely burn from hot water. Plan: -- Vistaril and Ultram -- Reassess and disposition Progress Notes: Patient is in no acute distress and stable for discharge home with prescription for Prednisone and Vistaril. Patient was given the opportunity to ask questions and all question were answered. Patient was instructed to follow up with manager electrical for further evaluation. Scribe Attestation: Documented by Wendy Kamara acting as a scribe for Cely Gee MD. Scribe Attestation: All medical record entries made by the Scribe were at my direction and personally dictated by me. I have reviewed the chart and agree that the record accurately reflects my personal performance of the history, physical exam, medical decision making, and the department course for this patient. I have also personally directed, reviewed, and agree with the discharge instructions and disposition. Disposition - Clinical Impression Clinical Impression: Dermatitis of foot - Patient ED Disposition Is Patient to be Admitted: No Doctor Will See Patient In The: Office Counseled Patient/Family Regarding: Studies Performed, Diagnosis, Need For Followup - Disposition Referrals: Podiatry Clinic [Outside] Disposition: Routine/Home Disposition Time: 11:11 Condition: GOOD Additional Instructions: Follow up with your manager electrical within 1 week. Take your medications as instructed. Prescriptions: Hydrocortisone 1% Cream [Cortizone 1% Cream] 1 appl TP DAILY #1 tube Hydroxyzine Pamoate [Vistaril] 25 mg PO TID PRN #30 cap PRN Reason: Itching / Pruritus Prednisone [Deltasone] 60 mg PO DAILY 5 Days tablet Instructions: Dermatitis
== END 2017-09-10 11:41 | disposition home or self-care (01) ==
LOC: H.ER 08:32
DX: L30.9 Dermatitis, unspecified (principal); Z88.0 Allergy status to penicillin
CPT/HCPCS: 81025; 99283; Q0177

== ENCOUNTER 2017-12-26 14:21 | Emergency (ER) | payer SELFPAY ==
[2017-12-26 14:36] VITALS: TEMP 98.3
[2017-12-26 15:59] LABS: BASO % 0.7 % (0.0-2.0); EOS # 0.1 K/uL (0.0-0.7); EOS % 1.6 % (0.0-4.0); HEMOGLOBIN 12.3 g/dL (12.0-16.0); LYMPH # 2.9 K/uL (1.0-4.3); LYMPH % 38.9 % (20.0-40.0); MEAN CELL VOLUME 88.1 fl (81.0-99.0); MEAN CORPUSCULAR HEMOGLOBIN 29.5 pg (27.0-31.0); MEAN CORPUSCULAR HGB CONC 33.5 g/dL (33.0-37.0); MEAN PLATELET VOLUME 7.7 fl (7.2-11.7); MONO # 0.8 K/uL (0.0-0.8); MONO % 11.3 % (0.0-10.0); NEUT # 3.6 K/uL (1.8-7.0); NEUT % 47.5 % (50.0-75.0); NRBC % 0.2 % (0.0-0.0); RBC 4.15 Mil/uL (3.80-5.20); RED CELL DISTRIBUTION WIDTH 13.4 % (11.5-14.5); WHITE BLOOD COUNT 7.5 K/uL (4.8-10.8)
[2017-12-26 16:05] LABS: ALB/GLOB RATIO 1.3 (1.0-2.1); ALBUMIN 4.1 g/dL (3.5-5.0); ALT/SGPT 29 U/L (9-52); AST/SGOT 26 U/L (14-36); BLOOD UREA NITROGEN 9 mg/dl (7-17); CALCIUM 9.3 mg/dL (8.4-10.2); GFR AFRICAN-AMERICAN > 60; GFR NON-AFRICAN AMERICAN > 60
--- NOTE | 2017-12-26 16:15 | RAD ---
HISTORY: chest pain COMPARISON: No prior. TECHNIQUE: Chest PA and lateral FINDINGS: LUNGS: No active pulmonary disease. PLEURA: No significant pleural effusion identified. No pneumothorax apparent. CARDIOVASCULAR: Normal. OSSEOUS STRUCTURES: No significant abnormalities. VISUALIZED UPPER ABDOMEN: Normal. OTHER FINDINGS: None. IMPRESSION: No active disease.
--- NOTE | 2017-12-26 17:27 | ED PDOC ---
HPI: Chest Pain Time Seen by Provider: 12/26/17 14:39 Chief Complaint (Nursing): Chest Pain Chief Complaint (Provider): Right sided chest pain, 1 day History Per: Patient History/Exam Limitations: no limitations Onset/Duration Of Symptoms: Days Current Symptoms Are (Timing): Still Present Additional Complaint(s): 22 yo female with no medical problems presents with right sided chest pain which began yesterday acutely when she leaned her right arm over chest to buckle seat belt. Pt states she took motrin at home but when the pain continued this morning she was concerned. Pt reports pain worse with deep inspiration. Denies fever/chills. Reported some SOB this morning which resolved. Past Medical History Reviewed: Historical Data, Nursing Documentation, Vital Signs Vital Signs: Last Vital Signs Temp 98.3 F 12/26/17 14:35 Pulse 56 L 12/26/17 15:34 Resp 16 12/26/17 14:35 BP 99/51 L 12/26/17 14:35 Pulse Ox 100 12/26/17 14:35 - Medical History PMH: No Chronic Diseases, Fractures (RIGHT FOOT) Denies: Chronic Kidney Disease - Surgical History Surgical History: No Surg Hx - Family History Family History: States: Unknown Family Hx - Living Arrangements Living Arrangements: With Family - Social History Current smoker - smoking cessation education provided: No - Home Medications Home Medications: Ambulatory Orders Medication Instructions Recorded Doxycycline/Skin Cleanser #19 50 mg PO DAILY 09/10/17 [Morgidox 1X50 mg Kit] Hydrocortisone 1% Cream [Cortizone 1 appl TP DAILY #1 tube 09/10/17 1% Cream] Hydroxyzine Pamoate [Vistaril] 25 mg PO TID PRN #30 cap 09/10/17 Prednisone [Deltasone] 60 mg PO DAILY 5 Days tablet 09/10/17 - Allergies Allergies/Adverse Reactions: Allergies Allergy/AdvReac Type Severity Reaction Status Date / Time Penicillins Allergy SWELLING Verified 09/10/17 08:42 Review of Systems ROS Statement: Except As Marked, All Systems Reviewed And Found Negative Constitutional: Negative for: Fever, Chills Cardiovascular: Positive for: Chest Pain Respiratory: Positive for: Shortness of Breath, Pleuritic Pain Physical Exam - Reviewed Nursing Documentation Reviewed: Yes Vital Signs Reviewed: Yes - Physical Exam Appears: Positive for: Well, Non-toxic, No Acute Distress Head Exam: Positive for: ATRAUMATIC, NORMAL INSPECTION, NORMOCEPHALIC Skin: Positive for: Normal Color, Warm, DRY Eye Exam: Positive for: Normal appearance ENT: Positive for: Normal ENT Inspection Neck: Positive for: Normal, Painless ROM Cardiovascular/Chest: Positive for: Regular Rate, Rhythm. Negative for: Chest Non Tender (Right sided chest wall tenderness ) Respiratory: Positive for: Normal Breath Sounds. Negative for: Accessory Muscle Use, Respiratory Distress Gastrointestinal/Abdominal: Positive for: Normal Exam, Soft Back: Positive for: Normal Inspection Extremity: Positive for: Normal ROM Neurologic/Psych: Positive for: Alert, Oriented - Laboratory Results Result Diagrams: 12/26/17 15:38 12/26/17 15:38 - ECG O2 Sat by Pulse Oximetry: 100 Medical Decision Making Medical Decision Making: Labs, EKG and CXR normal. Disposition - Clinical Impression Clinical Impression: Chest wall pain - Patient ED Disposition Is Patient to be Admitted: No Counseled Patient/Family Regarding: Diagnosis, Need For Followup - Disposition Disposition: Routine/Home Disposition Time: 17:28 Condition: STABLE Instructions: Chest Pain That Is Not Caused by the Heart (DC)
[2017-12-26 17:46] VITALS: BP 102/70; PULSE 65; RESP 18; O2SAT 99
--- NOTE | 2017-12-27 09:59 | CARD ---
APPROVED REPORT EKG Measurement Heart [id number] 112P29 [id number] <Conclusion> Sinus bradycardia with sinus arrhythmia Uojbk-Seogijbew-Wyzao Abnormal ECG
== END 2017-12-26 17:45 | disposition home or self-care (01) ==
LOC: H.ER 14:21
DX: R07.89 Other chest pain (principal); Z88.0 Allergy status to penicillin

== ENCOUNTER 2018-08-21 11:54 | Emergency (ER) | payer SELFPAY ==
[2018-08-21 11:58] VITALS: BMI 29.6
[2018-08-21 12:00] VITALS: BP 111/75; PULSE 64; RESP 16; TEMP 98.8; O2SAT 97
--- NOTE | 2018-08-21 14:22 | ED PDOC ---
HPI: General Adult Time Seen by Provider: 08/21/18 12:49 Chief Complaint (Nursing): Eye Problem Chief Complaint (Provider): Painful swelling to right upper eyelid History Per: Patient History/Exam Limitations: no limitations Onset/Duration Of Symptoms: Days Current Symptoms Are (Timing): Still Present Additional Complaint(s): Gill Kirkpatrick is a 22 year old female, with a past medical history of Raj Parkinson White syndrome, who presents to the emergency department complaining of painful swelling to right upper eyelid. Patient states she began seeing some swelling after using eye makeup and has been getting slightly worst over the last couple of days. She has been using a cream which consists of mineral oils and petroleum cream which she thinks has only made her eye more itchy. Patient denies any fever, chills, visual disturbances, ear pain, sore throat or drainage. No further medical complaints. PMD: Clinic Past Medical History Reviewed: Historical Data, Nursing Documentation, Vital Signs Vital Signs: Last Vital Signs Temp 98.8 F 08/21/18 11:58 Pulse 64 08/21/18 11:58 Resp 16 08/21/18 11:58 BP 111/75 08/21/18 11:58 Pulse Ox 97 08/21/18 11:58 - Medical History PMH: Fractures (RIGHT FOOT) Denies: Chronic Kidney Disease Other PMH: raj parkinson white syndrome - Surgical History Surgical History: No Surg Hx - Family History Family History: States: Unknown Family Hx - Social History Current smoker - smoking cessation education provided: No Alcohol: None Drugs: Denies - Home Medications Home Medications: Ambulatory Orders Medication Instructions Recorded Doxycycline/Skin Cleanser #19 50 mg PO DAILY 09/10/17 [Morgidox 1X50 mg Kit] Hydrocortisone 1% Cream [Cortizone 1 appl TP DAILY #1 tube 09/10/17 1% Cream] Hydroxyzine Pamoate [Vistaril] 25 mg PO TID PRN #30 cap 09/10/17 Prednisone [Deltasone] 60 mg PO DAILY 5 Days tablet 09/10/17 Tobramycin 0.3% [Tobrex 0.3% Opth 3.5 gm OD Q8 #1 tube 08/21/18 Oint] - Allergies Allergies/Adverse Reactions: Allergies Allergy/AdvReac Type Severity Reaction Status Date / Time Penicillins Allergy SWELLING Verified 09/10/17 08:42 Review of Systems ROS Statement: Except As Marked, All Systems Reviewed And Found Negative Constitutional: Negative for: Fever, Chills Eyes: Negative for: Vision Change ENT: Positive for: Other (right upper eyelid pain and swelling). Negative for: Ear Pain, Throat Pain (or drainage) Physical Exam - Reviewed Nursing Documentation Reviewed: Yes Vital Signs Reviewed: Yes - Physical Exam Appears: Positive for: No Acute Distress Head Exam: Positive for: ATRAUMATIC, NORMAL INSPECTION, NORMOCEPHALIC Skin: Positive for: Normal Color, Warm, Dry Eye Exam: Positive for: Normal appearance, EOMI, PERRL ENT: Positive for: TM Is/Are (intact), Other (Right upper eyelid positive erythema and swelling. No drainage ). Negative for: Pharyngeal Erythema, Tonsillar Exudate, Tonsillar Swelling Neck: Positive for: Normal, Painless ROM, Supple Respiratory: Negative for: Respiratory Distress Extremity: Positive for: Normal ROM (upper and lower extremities). Negative for: Deformity, Swelling Neurologic/Psych: Positive for: Alert, Oriented. Negative for: Motor/Sensory Deficits - ECG O2 Sat by Pulse Oximetry: 97 (RA) Pulse Ox Interpretation: Normal Medical Decision Making Medical Decision Making: Time: 12:49 Initial Impression: Hordeolum Initial Plan: 13:35 -Patient advised to use warm compresses x3-5 times a day and use antibiotic ophthalmic ointment. She will be given referral to ophthalmology if symptoms worsen for further evaluation. ----- Scribe Attestation: Documented by Feliberto Willard, acting as a scribe for Wendy Herbert PA-C. Provider Scribe Attestation: All medical record entries made by the Scribe were at my direction and personally dictated by me. I have reviewed the chart and agree that the record a ccurately reflects my personal performance of the history, physical exam, medical decision making, and the department course for this patient. I have also personally directed, reviewed, and agree with the discharge instructions and disposition. Disposition - Clinical Impression Clinical Impression: Hordeolum - Disposition Referrals: Yamil Diaz MD [Staff Provider] - Disposition: Routine/Home Disposition Time: 13:35 Condition: STABLE Additional Instructions: Use warm compresses 3 - 5 times per day and use ophthalmic ointment as prescribed for 5 days. Return if worsening pain or trouble with your vision or if you develop fevers. Prescriptions: Tobramycin 0.3% [Tobrex 0.3% Opth Oint] 3.5 gm OD Q8 #1 tube Instructions: Valarie (Keilaolum) Forms: [employer] (Turkish), [facility] School/Work Excuse Print Language: LIBYAN
== END 2018-08-21 13:49 | disposition home or self-care (01) ==
LOC: H.ER 11:54
DX: H00.011 Hordeolum externum right upper eyelid (principal); Z88.0 Allergy status to penicillin